=== PATIENT | female | born 1980 | race Caucasian/White ===

== ENCOUNTER 2020-11-11 23:55 | Emergency (ER) | payer OTHER ==
[2020-11-12] MEDS ORDERED: Fentanyl 100 MCG/2 ML VIAL ONE (00:52)
[2020-11-12] MEDS ORDERED: Ondansetron PF 4 MG/2 ML Vial ONE (01:01)
[2020-11-12] MEDS ORDERED: Ketorolac Tromethamine 30 MG/ML VIAL ONE (01:17)
--- NOTE | 2020-11-12 07:56 | RAD ---
3 views of the left ankle: 11/12/2020 COMPARISON: None available HISTORY: Injury, trauma, pain FINDINGS: There is an obliquely oriented fracture of the distal left fibula with 3-4 mm of lateral di splacement and 5 mm of posterior displacement. There is a comminuted transverse displaced fracture at the base of the medial malleolus. The tibiotalar articulation demonstrate subluxation with the ricki us mildly displaced laterally (6 mm) with respect to the distal tibia. Postreduction imaging is advised. There may be a subtle posterior malleolus fracture on the lateral exam. IMPRESSION: Fracture subluxation of the left ankle joint. Postreduction imaging advised.
== END 2020-11-12 01:55 | disposition home or self-care (01) ==
LOC: NAV ERS 23:55
DX: S82.842A Displaced bimalleolar fracture of left lower leg, initial encounter for closed fracture (principal); F17.210 Nicotine dependence, cigarettes, uncomplicated; F41.9 Anxiety disorder, unspecified; F32.9 Major depressive disorder, single episode, unspecified; Z79.899 Other long term (current) drug therapy; X50.1XXA Overexertion from prolonged static or awkward postures, initial encounter
CPT/HCPCS: 27808; 96374; 96375; J1885; J2405; J3010

== ENCOUNTER 2021-07-04 02:15 | Emergency (ER) | payer OTHER ==
[2021-07-04] MEDS ORDERED: Lidocaine 1% (PF) 30 ML VIAL ONE (03:10)
== END 2021-07-04 03:50 | disposition home or self-care (01) ==
LOC: NAV ERS 02:15
DX: S53.125A Posterior dislocation of left ulnohumeral joint, initial encounter (principal); F17.210 Nicotine dependence, cigarettes, uncomplicated; F41.9 Anxiety disorder, unspecified; Z79.899 Other long term (current) drug therapy; W19.XXXA Unspecified fall, initial encounter
CPT/HCPCS: 24600; J2001